=== PATIENT | female | born 1975 | race African-American/Black ===

== ENCOUNTER 2019-06-07 06:03 | Inpatient (IN) ==
[2019-06-04 12:06] LABS: Calcium 9.3 MG/DL (8.5-10.1)
[2019-06-04 12:07] LABS: Basophils % 0.5 % (0.0-0.8); Eosinophils # 0.1 10*3/uL (0.0-0.87); Eosinophils % 1.5 % (0.00-10.9); Hematocrit 32.2 VOL% (35.7-47.0); Hemoglobin 9.2 GM/DL (12.0-16.0); Immature Granulocytes % 0.4 %; Immature Granulocytes Absolute 0.03 #; Lymphocytes # 2.6 10*3/uL (1.4-4.0); Mean Corpuscular HGB Conc 28.6 GM/DL (32-36); Mean Corpuscular Volume 76.5 FL (87-102); Mean Platelet Volume 9.7 FL (9.6-12.0); Monocytes % 6.5 % (1.7-12.7); Neutrophils % 58.1 % (38.7-73.9); Platelet Count 500 T/CUMM (130-400); Red Blood Count 4.21 MC/CUMM (3.8-5.5); Red Cell Distribution Width 18.3 % (9.3-17.3); White Blood Count 7.9 T/CUMM (4-12)
[2019-06-04 12:25] LABS: Anisocytosis Slight; Hypochromasia 1+; Platelet Estimate Increased; Polychromasia Slight
[2019-06-07] MEDS ORDERED: FAMOTIDINE 20 MG TABLET PO ONE (07:09)
[2019-06-07] MEDS ORDERED: DIAZEPAM 5 MG TABLET PO ONE (07:09)
[2019-06-07] MEDS ORDERED: DIAZEPAM 5 MG TABLET ONE (07:29)
[2019-06-07] MEDS ORDERED: KETOROLAC 30 MG/1 ML VIAL ONE ×2 (07:29→12:59)
[2019-06-07] MEDS ORDERED: FAMOTIDINE 20 MG TABLET ONE (07:30)
[2019-06-07] MEDS: LACTATED RINGERS 1,000 ML IV SCH ×2 (07:40→19:05)
[2019-06-07] MEDS ORDERED: KETOROLAC 30 MG/1 ML VIAL IV ONE (09:00)
[2019-06-07] MEDS ORDERED: ceFAZolin 1,000 MG VIAL ONE (09:06)
[2019-06-07] MEDS ORDERED: INDIGO CARMINE 5 ML AMP ONE ×2 (10:45→11:38)
[2019-06-07] MEDS ORDERED: BUPIVACAINE MPF 0.25% 30 ML VIAL ONE (12:22)
[2019-06-07] MEDS ORDERED: LIDOCAINE 1% 5 ML VIAL ONE (12:22)
[2019-06-07] MEDS ORDERED: DEXAMETHASONE 4 MG/1 ML VIAL ONE ×2 (12:22→12:59)
[2019-06-07] MEDS ORDERED: NALOXONE 0.4 MG/ML VIAL IV PRN (12:29)
[2019-06-07] MEDS ORDERED: HYDROmorphone PCA 30 MG/30 ML SYRINGE IV SCH (12:30)
[2019-06-07] MEDS ORDERED: PROPOFOL 200 MG/20 ML VIAL IV ONE (12:58)
[2019-06-07] MEDS ORDERED: SEVOFLURANE 1 UNIT/15 MINUTE INH ONE (12:58)
[2019-06-07] MEDS ORDERED: LIDOCAINE 2% 5 ML VIAL ONE (12:58)
[2019-06-07] MEDS ORDERED: MIDAZOLAM 2 MG/2 ML VIAL ONE (12:59)
[2019-06-07] MEDS ORDERED: ETOMIDATE 40 MG/20 ML VIAL IV ONE (12:59)
[2019-06-07] MEDS ORDERED: ONDANSETRON 4 MG/2 ML VIAL ONE (12:59)
[2019-06-07] MEDS ORDERED: GLYCOPYRROLATE 0.4 MG/2 ML VIAL ONE (12:59)
[2019-06-07] MEDS ORDERED: fentaNYL 100 MCG/2 ML VIAL ONE (12:59)
[2019-06-07] MEDS ORDERED: HYDROmorphone 2 MG/1 ML VIAL ONE (12:59)
[2019-06-07] MEDS ORDERED: ROCURONIUM 100 MG/10 ML VIAL IV ONE (13:00)
[2019-06-07] MEDS ORDERED: ACETAMINOPHEN 1,000 MG/100 ML VIAL IV ONE (13:00)
[2019-06-07] MEDS ORDERED: LACTATED RINGERS 1,000 ML IV ONE (13:00)
[2019-06-07] MEDS ORDERED: SUCCINYLCHOLINE 200 MG/10 ML VIAL ONE (13:00)
[2019-06-07] MEDS ORDERED: HYDROmorphone PCA 30 MG/30 ML SYRINGE IV ONE (13:00)
[2019-06-07] MEDS ORDERED: NEOSTIGMINE 10 MG/10 ML VIAL ONE (13:00)
[2019-06-07 13:06] LABS: Apearance,Urine CLEAR (Clear); Bilirubin,Urine Negative (Negative); Blood, Urine Negative (Negative); Glucose,Urine (UA) Negative (Negative); Ketones,Urine Negative (Negative); Nitrite,Urine Negative (Negative); Protein,Urine Negative; RBC,Urine 3 /HPF (0-4); Squamous Epithelial Cell,Urine Occasional /HPF (0-10); Urine Color Straw (Yellow); Urine Specific Gravity 1.013 (1.001-1.035); Urine Urobilinogen < 2.0 EU/DL (0.2-1.0); WBC,Urine <1 /HPF (0-6)
[2019-06-07] MEDS ORDERED: BISACODYL 10 MG SUPP RECTAL PRN (14:16)
[2019-06-07] MEDS ORDERED: BENZOCAINE/MENTHOL LOZENGE 18/BOX PO PRN (14:16)
[2019-06-07] MEDS ORDERED: ALBUTEROL 2.5 MG/3 ML NEB RESP TX PRN (15:00)
[2019-06-07 18:00] LABS: Basophils % 0.2 % (0.0-0.8); Hematocrit 30.6 VOL% (35.7-47.0); Hemoglobin 8.9 GM/DL (12.0-16.0); Immature Granulocytes % 0.6 %; Immature Granulocytes Absolute 0.16 #; Lymphocytes # 0.7 10*3/uL (1.4-4.0); Lymphocytes % 2.7 % (21.3-54.2); Mean Corpuscular HGB Conc 29.1 GM/DL (32-36); Mean Corpuscular Volume 76.5 FL (87-102); Mean Platelet Volume 10.7 FL (9.6-12.0); Monocytes % 1.2 % (1.7-12.7); Neutrophils % 95.3 % (38.7-73.9); Platelet Count 429 T/CUMM (130-400); Red Cell Distribution Width 18.4 % (9.3-17.3); White Blood Count 26.4 T/CUMM (4-12)
[2019-06-07 18:04] LABS: Hypochromasia 1+; Lymphocytes 2 % (20-55); Macrocytosis 1+; Microcytosis 2+; Platelet Estimate Increased; Polychromasia Few; Segmented Neutrophils 97 % (50-85); Total Cells Counted 100
[2019-06-07] MEDS: ceFAZolin 2,000 MG in PREMIX 1 EACH IV SCH (18:35)
[2019-06-08] MEDS: ceFAZolin 2,000 MG in PREMIX 1 EACH IV SCH ×3 (02:17→18:33)
[2019-06-08] MEDS: LACTATED RINGERS 1,000 ML IV SCH ×2 (05:34→22:23)
[2019-06-08 05:52] LABS: Basophils % 0.2 % (0.0-0.8); Hematocrit 26.1 VOL% (35.7-47.0); Hemoglobin 7.4 GM/DL (12.0-16.0); Immature Granulocytes % 0.5 %; Immature Granulocytes Absolute 0.09 #; Lymphocytes # 1.6 10*3/uL (1.4-4.0); Mean Corpuscular HGB Conc 28.4 GM/DL (32-36); Mean Corpuscular Volume 76.8 FL (87-102); Mean Platelet Volume 9.9 FL (9.6-12.0); Monocytes % 7.8 % (1.7-12.7); Neutrophils % 82.5 % (38.7-73.9); Platelet Count 470 T/CUMM (130-400); Red Cell Distribution Width 18.6 % (9.3-17.3); White Blood Count 17.5 T/CUMM (4-12)
[2019-06-08 06:14] LABS: Anisocytosis 1+; Hypochromasia 2+; Microcytosis 2+; Polychromasia Slight; Target Cells Few
[2019-06-08 06:15] LABS: Ovalocytes Few; Platelet Estimate Increased
[2019-06-08 06:16] LABS: Calcium 8.9 MG/DL (8.5-10.1); Osmolality,Calculated 274.8 MOS/KG (273-304)
[2019-06-08] MEDS: FLUTICASONE/SALMETEROL 250-50 DISKUS 14 DOSE INH SCH (10:27)
[2019-06-08] MEDS: OXYBUTYNIN XL 10 MG TABLET PO SCH ×2 (10:34→12:04)
[2019-06-08] MEDS: ONDANSETRON 4 MG/2 ML VIAL IV PRN ×2 (10:45→17:09)
[2019-06-08] MEDS ORDERED: HYDROmorphone 2 MG/1 ML VIAL IV PRN (18:18)
[2019-06-08] MEDS: KETOROLAC 30 MG/1 ML VIAL IV SCH (21:03)
[2019-06-09] MEDS: KETOROLAC 30 MG/1 ML VIAL IV SCH (04:08)
[2019-06-09] MEDS: FLUTICASONE/SALMETEROL 250-50 DISKUS 14 DOSE INH SCH ×3 (05:25→21:07)
[2019-06-09] MEDS: LACTATED RINGERS 1,000 ML IV SCH ×2 (06:18→14:13)
[2019-06-09] MEDS: OXYBUTYNIN XL 10 MG TABLET PO SCH (09:51)
[2019-06-09] MEDS: DOCUSATE SODIUM 100 MG CAPSULE PO PRN ×2 (09:52→20:58)
[2019-06-09] MEDS ORDERED: KETOROLAC 30 MG/1 ML VIAL IV PRN (10:00)
[2019-06-09] MEDS: IBUPROFEN 800 MG TABLET PO PRN (17:48)
[2019-06-09] MEDS: MAGNESIUM HYDROXIDE SUSP 30 ML UDCUP PO PRN (20:58)
[2019-06-09] MEDS: SIMETHICONE CHEW 80 MG TABLET PO PRN (21:07)
[2019-06-10] MEDS: IBUPROFEN 800 MG TABLET PO PRN (04:28)
[2019-06-10] MEDS: DOCUSATE SODIUM 100 MG CAPSULE PO PRN (09:07)
[2019-06-10] MEDS: SIMETHICONE CHEW 80 MG TABLET PO PRN (09:07)
[2019-06-10] MEDS: MAGNESIUM HYDROXIDE SUSP 30 ML UDCUP PO PRN (09:07)
[2019-06-10] MEDS: OXYBUTYNIN XL 10 MG TABLET PO SCH (09:07)
[2019-06-10] MEDS: FLUTICASONE/SALMETEROL 250-50 DISKUS 14 DOSE INH SCH (09:08)
[2019-06-10 13:22] VITALS: BP 115/69
== END 2019-06-10 12:50 | disposition home or self-care (01) | DRG 743 ==
LOC: N.OR 06:03 → N.SDSINP 07:26 → N.OB 14:20
PROVIDERS: ADMIT Obstetrics & Gynecology; ATTEND Obstetrics & Gynecology

== ENCOUNTER 2019-06-14 15:20 | Inpatient (IN) ==
[2019-06-14] MEDS ORDERED: LACTATED RINGERS 1,000 ML IV ONE (16:12)
[2019-06-14] MEDS ORDERED: cefTRIAXone 1,000 MG in SODIUM CHLORIDE 0.9% 100 ML IV STA (16:13)
[2019-06-14] MEDS ORDERED: SODIUM CHLORIDE 0.9% 1,000 ML IV STA (17:11)
[2019-06-14 18:13] LABS: Basophils # 0.1 10*3/uL (0.0-0.2); Basophils % 0.4 % (0.0-0.8); Eosinophils # 0.2 10*3/uL (0.0-0.87); Eosinophils % 1.5 % (0.00-10.9); Hematocrit 28.8 VOL% (35.7-47.0); Hemoglobin 8.5 GM/DL (12.0-16.0); Immature Granulocytes % 0.4 %; Immature Granulocytes Absolute 0.06 #; Lymphocytes # 2.4 10*3/uL (1.4-4.0); Mean Corpuscular HGB Conc 29.5 GM/DL (32-36); Mean Corpuscular Volume 75.2 FL (87-102); Mean Platelet Volume 9.3 FL (9.6-12.0); Monocytes % 6.5 % (1.7-12.7); Neutrophils % 75.2 % (38.7-73.9); Platelet Count 651 T/CUMM (130-400); Red Blood Count 3.83 MC/CUMM (3.8-5.5); Red Cell Distribution Width 18.9 % (9.3-17.3); White Blood Count 14.8 T/CUMM (4-12)
[2019-06-14 18:34] LABS: Albumin 3.7 G/DL (3.4-5.0); Bilirubin,Total 0.6 MG/DL (0.2-1.0); Total Protein 8.3 G/DL (6.4-8.3)
[2019-06-14] MEDS ORDERED: PROMETHAZINE 25 MG/1 ML VIAL IM PRN (18:49)
[2019-06-14] MEDS ORDERED: ONDANSETRON 4 MG/2 ML VIAL IV PRN (18:49)
[2019-06-14] MEDS ORDERED: ACETAMINOPHEN 325 MG TABLET PO PRN (18:49)
[2019-06-14] MEDS ORDERED: BISACODYL 10 MG SUPP RECTAL PRN (18:49)
[2019-06-14] MEDS ORDERED: HYDROmorphone 2 MG TABLET PO PRN (18:49)
[2019-06-14] MEDS ORDERED: MAGNESIUM HYDROXIDE SUSP 30 ML UDCUP PO PRN (18:49)
[2019-06-14] MEDS ORDERED: ONDANSETRON 4 MG/2 ML VIAL IV STA (18:57)
[2019-06-14 19:39] LABS: INR 1.1; PT Patient Result 11.7 SECS (9.6-12.2)
[2019-06-14 20:03] LABS: Apearance,Urine CLOUDY (Clear); Bilirubin,Urine Negative (Negative); Blood, Urine Large mg/dL (Negative); Glucose,Urine (UA) Negative (Negative); Hyaline Casts,Urine 28 /LPF (0-3); Ketones,Urine 20 mg/dL (Negative); Mucus,Urine Many /LPF (Occasional); Nitrite,Urine Positive (Negative); Protein,Urine 100 MG/DL; RBC,Urine 59 /HPF (0-4); Urine Color Yellow (Yellow); Urine Specific Gravity > 1.060 (1.001-1.035); WBC,Urine 106 /HPF (0-6)
[2019-06-14] MEDS ORDERED: DOCUSATE SODIUM 100 MG CAPSULE PO SCH (21:00)
[2019-06-14] MEDS ORDERED: FLUTICASONE/SALMETEROL 250-50 DISKUS 14 DOSE INH SCH (22:00)
[2019-06-14] MEDS: ALBUTEROL 2.5 MG/3 ML NEB RESP TX SCH (23:00)
[2019-06-14] MEDS: DEXTROSE 5% LACTATED RINGERS 1,000 ML IV SCH (23:50)
[2019-06-15] MEDS: ALBUTEROL 2.5 MG/3 ML NEB RESP TX SCH ×6 (03:00→23:55)
[2019-06-15] MEDS: DEXTROSE 5% LACTATED RINGERS 1,000 ML IV SCH ×2 (07:42→15:40)
[2019-06-15] MEDS ORDERED: cefTRIAXone 1,000 MG in SYRINGE 1 EACH IV SCH (17:00)
[2019-06-16] MEDS: DEXTROSE 5% LACTATED RINGERS 1,000 ML IV SCH ×2 (00:38→06:51)
[2019-06-16] MEDS: ALBUTEROL 2.5 MG/3 ML NEB RESP TX SCH ×6 (03:00→22:39)
[2019-06-16] MEDS: IBUPROFEN 800 MG TABLET PO PRN ×2 (15:23→23:10)
[2019-06-16] MEDS: CIPROFLOXACIN 500 MG TABLET PO SCH (21:26)
[2019-06-17] MEDS: ALBUTEROL 2.5 MG/3 ML NEB RESP TX SCH ×3 (02:38→11:52)
[2019-06-17 08:05] VITALS: BP 104/61
[2019-06-17] MEDS: CIPROFLOXACIN 500 MG TABLET PO SCH (09:58)
== END 2019-06-17 14:20 | disposition home or self-care (01) | DRG 390 ==
LOC: N.EDINP 15:20 → N.ED 15:20 → N.EDINP 20:13 → N.OB 21:17
PROVIDERS: ADMIT Obstetrics & Gynecology; ATTEND Obstetrics & Gynecology